=== PATIENT | female | born 1960 | race American Indian/Alaskan Native ===

== ENCOUNTER 2020-01-02 14:03 | Emergency (ER) | payer SELFPAY ==
[2020-01-02] MEDS ORDERED: ONDANSETRON 4 MG/2 ML INJ IV ONE ×2 (14:34→22:09)
[2020-01-02] MEDS ORDERED: SODIUM CHLORIDE 0.9% 1000 ML 1,000 ML IV ONE (14:34)
[2020-01-02] MEDS ORDERED: PANTOPRAZOLE 40 MG INJ IV ONE ×2 (14:35→22:21)
[2020-01-02] MEDS ORDERED: SUCRALFATE 1 GM/10 ML ORAL LIQD PO ONE (14:37)
[2020-01-02] MEDS ORDERED: FAMOTIDINE 20 MG TAB PO ONE (14:37)
--- NOTE | 2020-01-02 14:37 | Emergency Department Report ---
Chief Complaint: Abdominal Pain Stated Complaint: VOMITING X 2 DAYS Time Seen by Provider: 01/02/20 14:36 - HPI History of Present Illness: 59 y/o fem p/w abd pain dark emesis dark stool x 2-[address] ekg ivf rectal exam symptom control reassess probable triage to main side occassional tobacoc and marijuana use sober at this time Vital Signs 01/02/20 14:07 Temperature 97.2 F L Pulse Rate 96 H Respiratory 16 Rate Blood Pressure 114/77 O2 Sat by Pulse 98 Oximetry - Exam Vital Signs: Vital Signs 01/02/20 14:07 Temperature 97.2 F L Pulse Rate 96 H Respiratory 16 Rate Blood Pressure 114/77 O2 Sat by Pulse 98 Oximetry MSE screening note: Focused history and physical exam performed. Due to findings the following was ordered: ED Disposition for MSE Condition: Stable Instructions: Abdominal Pain (ED)
[2020-01-02] MEDS ORDERED: ONDANSETRON 4 MG ODT TAB PO ONE (14:38)
[2020-01-02 15:03] LABS: Basophils # (Auto) 0.1 K/mm3 (0.0-0.1); Eosinophils % (Auto) 0.1 % (0.0-4.3); Hematocrit 45.5 % (30.3-42.9); Hemoglobin 15.6 gm/dl (10.1-14.3); Lymphocytes # (Auto) 0.9 K/mm3 (1.2-5.4); Lymphocytes % (Auto) 11.6 % (13.4-35.0); Mean Corpuscular HGB Conc 34 % (30-34); Mean Corpuscular Volume 97 fl (79-97); Monocytes # (Auto) 0.2 K/mm3 (0.0-0.8); Monocytes % (Auto) 2.9 % (0.0-7.3); Platelet Count 312 K/mm3 (140-440); Red Blood Count 4.68 M/mm3 (3.65-5.03); Red Cell Distribution Width 13.9 % (13.2-15.2)
[2020-01-02 15:15] LABS: Partial Thromboplastin Time 37.7 Sec. (24.2-36.6)
[2020-01-02 15:37] LABS: Alanine Aminotransferase 27 units/L (7-56); BUN/Creatinine Ratio 19; Blood Urea Nitrogen 13 mg/dL (7-17); Calcium 9.7 mg/dL (8.4-10.2); Hemolysis Index 13
--- NOTE | 2020-01-02 16:00 | Cat Scan Report ---
CT ABDOMEN AND PELVIS WITHOUT CONTRAST HISTORY: GI bleed. COMPARISON: None TECHNIQUE: Routine abdominal and pelvic CT exam performed without contrast. Lack of intravenous cont rast limits evaluation of the vascular and solid organs. All CT scans at this location are performed using CT dose reduction for ALARA by means of automated exposure control. FINDINGS: CT ABDOMEN: Lung Bases: No significant abnormality. Liver: Normal. Biliary: Normal. Stomach: Moderate circumferential wall thickening of the gastric fundus and body. No gastric mass or ulcer identified. No gastric varices. Spleen: No significant abnormality. Unenlarged. No splenic varices. Pancreas: Normal. Adrenals: No significant abnormality. Kidneys: Normal with nondilated renal collecting systems and ureters. Lymphatics: No lymphadenopathy. Vasculature: No significant abnormality. Bowel/Peritoneum: No significant abnormality. No free air. No free fluid. Appendix not visualized. No pericecal inflammation. CT PELVIC: : No significant abnormality. Normal uterus. Ovaries are not identified. 2 metal clips in the right adnexa measure 1.5 cm each. No adnexal mass or free fluid. Lymphatics: No lymphadenopathy. Osseous Structures: No aggressive appearing osseous lesions. Additional Findings: None IMPRESSION: 1. Nonspecific gastric wall thickening. 2. No mass or ulcer identified. 3. No evidence of CT evidence of GI hemorrhage. 4. No evidence of hepatic cirrhosis or portal hypertension. Signer Name: Mark Pickens MD Signed: 01/02/2020 3:55 PM Workstation Name: [id number]
[2020-01-02 17:06] LABS: Bacteria,Urine 1+ /HPF (Negative); Bilirubin,Urine NEG (Negative); Blood,Urine LG (Negative); Color,Urine Yellow (Yellow); Mucus,Urine FEW /HPF
--- NOTE | 2020-01-02 22:14 | Emergency Department Report ---
ED N/V/D HPI - General Chief complaint: Abdominal Pain Stated complaint: VOMITING X 2 DAYS Time Seen by Provider: 01/02/20 14:36 Source: patient Mode of arrival: Ambulatory Limitations: No Limitations - History of Present Illness Initial comments: 59-year-old female with no past medical history, presents to ED with nausea and vomiting 2 days. Patient states she is having dark emesis and dark colored stool. She reports diffuse abdominal pain. Denies fever, chest pain, diarrhea. Patient reports formed stools. States there initially tired, but have now "cleared up." Reports occasional alcohol use, denies being a daily drinker. MD complaint: nausea, vomiting, abdominal pain -: days(s) (2) Description of Vomiting: other ("dark-colored") Associated Abdominal Pain: Yes Location: diffuse Severity: moderate Quality: cramping, aching Consistency: constant Improves with: none Worsens with: none Associated Symptoms: nausea/vomiting. denies: chest pain, fever/chills, vibha rtness of breath - Related Data Previous Rx's Medication Instructions Recorded Last Taken Type Hydrocodone Bit/Acetaminophen 1 each PO Q8H PRN #20 tablet 09/28/13 Unknown Rx [Lortab 7.5-500 mg] Ibuprofen [Motrin] 600 mg PO Q8H PRN #60 tablet 09/28/13 Unknown Rx Penicillin Vk [Veetids TAB] 500 mg PO QID #40 tablet 09/28/13 Unknown Rx Dicyclomine [Bentyl] 20 mg PO QID PRN #20 tablet 01/02/20 Unknown Rx Famotidine [Pepcid] 40 mg PO QHS #30 tablet 01/02/20 Unknown Rx Ondansetron [Zofran Odt] 4 mg PO Q8HR PRN #20 tab.rapdis 01/02/20 Unknown Rx Allergies Allergy/AdvReac Type Severity Reaction Status Date / Time No Known Allergies Allergy Verified 01/02/20 22:22 ED Review of Systems ROS: Stated complaint: VOMITING X 2 DAYS Other details as noted in HPI Comment: All other systems reviewed and negative Constitutional: denies: chills, fever Respiratory: denies: shortness of breath Cardiovascular: denies: chest pain Gastrointestinal: abdominal pain, vomiting, melena. denies: diarrhea, constipation ED Past Medical Hx - Past Medical History Previous Medical History?: No - Surgical History Past Surgical History?: No Hx Appendectomy: Yes Additional Surgical History: LUMPECTOMY, EXPLORATORY, TUBILIGATION - Social History Smoking Status: Current Every Day Smoker Substance Use Type: Marijuana - Medications Home Medications: Home Medications Medication Instructions Recorded Confirmed Last Taken Type Hydrocodone Bit/Acetaminophen 1 each PO Q8H PRN #20 tablet 09/28/13 Unknown Rx [Lortab 7.5-500 mg] Ibuprofen [Motrin] 600 mg PO Q8H PRN #60 tablet 09/28/13 Unknown Rx Penicillin Vk [Veetids TAB] 500 mg PO QID #40 tablet 09/28/13 Unknown Rx Dicyclomine [Bentyl] 20 mg PO QID PRN #20 tablet 01/02/20 Unknown Rx Famotidine [Pepcid] 40 mg PO QHS #30 tablet 01/02/20 Unknown Rx Ondansetron [Zofran Odt] 4 mg PO Q8HR PRN #20 tab.rapdis 01/02/20 Unknown Rx ED Physical Exam - General Limitations: No Limitations General appearance: alert, in no apparent distress - Head Head exam: Present: atraumatic, normocephalic - Eye Eye exam: Present: normal appearance, EOMI - ENT ENT exam: Present: mucous membranes moist - Neck Neck exam: Present: normal inspection - Respiratory Respiratory exam: Present: normal lung sounds bilaterally. Absent: respiratory distress - Cardiovascular Cardiovascular Exam: Present: regular rate, normal rhythm - GI/Abdominal GI/Abdominal exam: Present: soft, tenderness (mild diffuse tenderness). Absent: distended - Rectal Rectal exam: Present: heme (-) stool, other (stool is brown in color) - Extremities Exam Extremities exam: Present: normal inspection, full ROM - Neurological Exam Neurological exam: Present: alert, oriented X3 - Psychiatric Psychiatric exam: Present: normal affect, normal mood - Skin Skin exam: Present: warm, dry, intact, normal color ED Course Vital Signs 01/02/20 01/02/20 01/02/20 14:07 22:10 22:30 Temperature 97.2 F L 98.4 F Pulse Rate 96 H 73 Respiratory 16 16 Rate Blood Pressure 114/77 159/88 Blood Pressure 143/81 [Left] O2 Sat by Pulse 98 100 100 Oximetry 01/02/20 01/02/20 23:00 23:30 Temperature Pulse Rate Respiratory Rate Blood Pressure 159/88 137/72 Blood Pressure [Left] O2 Sat by Pulse 100 100 Oximetry ED Medical Decision Making - Lab Data Result diagrams: 01/02/20 14:48 01/02/20 14:48 - Radiology Data Radiology results: report reviewed, image reviewed - Medical Decision Making - vitals normal - Hb 15.6 - rectal exam shows brown stool, guiac negative - CT shows nonspecific gastric wall thickening - pt feels better now, feels comfortable w/ discharge home - prescriptions given - outpt f/u advised - return precautions given - Differential Diagnosis gastritis, ulcer, GI bleed, anemia Critical care attestation.: If time is entered above; I have spent that time in minutes in the direct care of this critically ill patient, excluding procedure time. ED Disposition Clinical Impression: Gastritis, Acute abdominal pain Disposition: TO HOME OR SELFCARE Is pt being admited?: No Condition: Stable Instructions: Gastritis (ED), Diet for Ulcers and Gastritis (ED), Abdominal Pain (ED) Prescriptions: Famotidine [Pepcid] 40 mg PO QHS #30 tablet Dicyclomine [Bentyl] 20 mg PO QID PRN #20 tablet PRN Reason: abdominal pain Ondansetron [Zofran Odt] 4 mg PO Q8HR PRN #20 tab.rapdis PRN Reason: Vomiting Referrals: PRIMARY CARE, [Primary Care Provider] - 3-5 Days [facility] [Provider Group] - 3-5 Days [facility] [Provider Group] - 3-5 Days Forms: Work/School Release Form(ED) Time of Disposition: 23:02
[2020-01-02] MEDS ORDERED: SODIUM CHLORIDE 0.9% 1000 ML 1,000 ML ONE (22:30)
[2020-01-02] MEDS ORDERED: SUCRALFATE 1 GM/10 ML ORAL LIQD ONE (22:30)
[2020-01-02] MEDS ORDERED: FAMOTIDINE 20 MG TAB ONE (22:31)
[2020-01-03 00:03] VITALS: BP 137/72
== END 2020-01-03 00:05 | disposition home or self-care (01) ==
LOC: ED 14:03
DX: K29.60 Other gastritis without bleeding (principal); F17.200 Nicotine dependence, unspecified, uncomplicated; F12.10 Cannabis abuse, uncomplicated; Z90.49 Acquired absence of other specified parts of digestive tract; Z79.899 Other long term (current) drug therapy
CPT/HCPCS: 36415; 74176; 80053; 81001; 82550; 83690; 83735; 85025; 85610; 85730; 96361; 96374; 96375; 99284; C9113; J2405; J7030